=== PATIENT | female | born 1965 | race Caucasian/White ===

== ENCOUNTER 2019-10-14 06:46 | Day surgery (SDC) | payer BC ==
[~2019-10-14 06:46] MED LIST: Acetaminophen TAB* 325 MG PO PRN; Buffered Lidocaine 1% SYRIN* 1 ML/SYRINGE INTRADERM ONE
[2019-10-14] MEDS ORDERED: Midazolam* 1 MG/ML 2 ML VIAL (2 MG) ONE ×2 (08:40→09:00)
[2019-10-14] MEDS ORDERED: Phenylephrine OPHTH SOL 2.5%* 2 ML ONE ×2 (09:18→11:57)
[2019-10-14] MEDS ORDERED: Cyclopentolate 1% OPTH.SOL* 2 ML BTL ONE ×2 (09:18→11:57)
[2019-10-14] MEDS ORDERED: Proparacaine 0.5% OPHTH.SOL* 15 ML BTL ONE ×2 (09:18→11:58)
[2019-10-14] MEDS ORDERED: Lidocaine 2% w/ EPI 1:200,000* 20 ML SDV VIAL ONE ×2 (09:18→11:57)
[2019-10-14] MEDS ORDERED: Povidone Iodine 5% OPTH* 30 ML BTL ONE ×2 (09:18→11:57)
[2019-10-14] MEDS ORDERED: Ketorolac 0.5% OPHTH (NF) 0.5 % 5 ML BTL ONE ×2 (09:18→11:57)
[2019-10-14] MEDS ORDERED: Neomycin/Polymy/Dex OPTH.SUSP* MAXITROL 0.1% 5 ML ONE ×2 (09:18→11:57)
[2019-10-14] MEDS ORDERED: Lidocaine 1% MPF ** 5 ML VIAL ONE ×2 (09:18→11:57)
[2019-10-14 09:55] VITALS: BP 110/71
--- NOTE | 2019-10-14 10:03 | OP ---
DATE OF OPERATION: 10/14/2019 - ENDOCEC DATE OF : 1965. SURGEON: Matias Cortez M.D. PREOPERATIVE DIAGNOSIS: Cataract right eye. POSTOPERATIVE DIAGNOSIS: Cataract right eye. OPERATIVE PROCEDURE: Extracapsular cataract extraction with intraocular lens implant right eye. DESCRIPTION OF PROCEDURE: The patient was brought to the operating room after being given 1/2% Alcaine with epinephrine drops in the preoperative area. The eye was prepped and draped in the usual sterile fashion. Sterile drape and eyelid speculum were placed. Again, topical 1/2% Alcaine with epinephrine was given. A paracentesis incision was made at the 9 o'clock position with the No.75 blade. Clear cornea incision 2.2 x 2.2-mm was created at the 12 o'clock position starting at the anterior limbus using the 2.2-mm keratome. The anterior chamber was irrigated with 0.4 mL of 1% non-preservative intracameral lidocaine and filled with DisCoVisc. A capsulorrhexis was completed using the cystotome and the Utrata forceps. Hydrodissection was performed with balanced salt solution. The lens nucleus was removed with the Phacoemulsification handpiece without incident. Cortex was removed with the irrigation-aspiration handpiece. The capsular bag was re-inflated using DisCoVisc and an TFNT40 19 implant was inserted with the shooter, oriented to the 180 degree meridian. Horizontal reference casillas were made with the patient seated in the preoperative area. All measurements were confirmed with ORA. The irrigation- aspiration handpiece was used to remove all residual DisCoVisc. The eye was refilled with balanced salt solution and the wound checked and found to be watertight. Topical Maxitrol drops were given. [id number]/[facility] #: [id number] MTDD
[2019-10-14] MEDS ORDERED: acetaZOLAMIDE TAB* 250 MG ONE (11:57)
== END 2019-10-14 09:47 | disposition home or self-care (01) ==
LOC: OREAST 06:46
PROVIDERS: ATTEND Specialist
DX: H25.811 Combined forms of age-related cataract, right eye (principal); E11.42 Type 2 diabetes mellitus with diabetic polyneuropathy; I10 Essential (primary) hypertension; E55.9 Vitamin D deficiency, unspecified; K57.90 Diverticulosis of intestine, part unspecified, without perforation or abscess without bleeding; F10.10 Alcohol abuse, uncomplicated; Z88.1 Allergy status to other antibiotic agents; Z88.2 Allergy status to sulfonamides; Z88.8 Allergy status to other drugs, medicaments and biological substances; Z79.4 Long term (current) use of insulin
CPT/HCPCS: A9270-GY; J2250; V2788

== ENCOUNTER 2019-10-21 08:22 | Day surgery (SDC) | payer BC ==
[2019-10-21] MEDS ORDERED: Cyclopentolate 1% OPTH.SOL* 2 ML BTL ONE (09:22)
[2019-10-21] MEDS ORDERED: Phenylephrine OPHTH SOL 2.5%* 2 ML ONE (09:22)
[2019-10-21] MEDS ORDERED: Neomycin/Polymy/Dex OPTH.SUSP* MAXITROL 0.1% 5 ML ONE (09:22)
[2019-10-21] MEDS ORDERED: Proparacaine 0.5% OPHTH.SOL* 15 ML BTL ONE (09:22)
[2019-10-21] MEDS ORDERED: Lidocaine 2% w/ EPI 1:200,000* 20 ML SDV VIAL ONE (09:22)
[2019-10-21] MEDS ORDERED: Povidone Iodine 5% OPTH* 30 ML BTL ONE (09:22)
[2019-10-21] MEDS ORDERED: Ketorolac 0.5% OPHTH (NF) 0.5 % 5 ML BTL ONE (09:22)
[2019-10-21] MEDS ORDERED: Lidocaine 1% MPF ** 5 ML VIAL ONE (09:22)
[2019-10-21] MEDS ORDERED: Midazolam* 1 MG/ML 2 ML VIAL (2 MG) ONE ×2 (10:09→10:37)
[2019-10-21 11:22] VITALS: BP 120/67
--- NOTE | 2019-10-21 11:38 | OP ---
DATE OF OPERATION: 10/21/2019. DATE OF : 1965. SURGEON: Matias Cortez M.D. PREOPERATIVE DIAGNOSIS: Cataract left eye. POSTOPERATIVE DIAGNOSIS: Cataract left eye. OPERATIVE PROCEDURE: Extracapsular cataract extraction with intraocular lens implant left eye. PROCEDURE: The patient was brought to the operating room after being given 1/2% Alcaine with epineph rine drops in the preoperative area. The eye was prepped and draped in the usual sterile fashion. S terile drape and eyelid speculum were placed. Again, topical 1/2% Alcaine with epinephrine was given . A paracentesis incision was made at the 3 o'clock position with the No.75 blade. Clear cornea inc ision 2.2 x 2.2-mm was created at the 6 o'clock position starting at the anterior limbus using the 2. 2-mm keratome. The anterior chamber was irrigated with 0.4 mL of 1% non-preservative intracameral li docaine and filled with DisCoVisc. A capsulorrhexis was completed using the cystotome and the Utrata forceps. Hydrodissection was performed with balanced salt solution. The lens nucleus was removed wi th the Phacoemulsification handpiece without incident. Cortex was removed with the irrigation-aspira tion handpiece. The capsular bag was re-inflated using DisCoVisc and an TFNT30 18.5 implant was inse rted with the shooter, oriented to the 13 degree meridian. Horizontal reference csaillas were made with the patient seated in the preoperative area. All measurements were confirmed with ORA. The irrigat ion-aspiration handpiece was used to remove all residual DisCoVisc. The eye was refilled with balanc ed salt solution and the wound checked and found to be watertight. Topical Maxitrol drops were given . [id number]/[facility] #: [id number]
== END 2019-10-21 11:11 | disposition home or self-care (01) ==
LOC: OREAST 08:22
PROVIDERS: ATTEND Specialist
DX: H25.812 Combined forms of age-related cataract, left eye (principal); E11.43 Type 2 diabetes mellitus with diabetic autonomic (poly)neuropathy; Z79.84 Long term (current) use of oral hypoglycemic drugs; Z88.1 Allergy status to other antibiotic agents; I10 Essential (primary) hypertension; G25.81 Restless legs syndrome; G62.9 Polyneuropathy, unspecified; K31.84 Gastroparesis
CPT/HCPCS: A9270-GY; J2250; V2788

== ENCOUNTER 2020-09-28 10:55 | Inpatient (IN) ==
[2020-09-28] MEDS ORDERED: NS 0.9% 1000 ml BAG 1,000 ML IV ONE (11:48)
[2020-09-28 12:45] LABS: INR 1.23 (0.82-1.09)
[2020-09-28 12:57] LABS: Albumin 3.5 g/dL (3.2-5.2); Albumin/Globulin Ratio 0.8 (1-3); BUN/Creatinine Ratio 5.2 (8-20); Calcium 8.5 mg/dL (8.6-10.3); EGFR African American 8.1 (>60); EGFR Non-African American 6.7 (>60); Globulin 4.6 g/dL (2-4); Magnesium 1.3 mg/dL (1.9-2.7); Potassium 4.4 mmol/L (3.5-5.0); Total Bilirubin 1.4 mg/dL (0.2-1.0); Total Protein 8.1 g/dL (6.4-8.9); Troponin I 0.01 ng/mL (<0.03)
[2020-09-28 13:00] LABS: ABS Lymphocytes 0.8 10^3/ul (1.0-4.8); ABS Monocytes 1.1 10^3/ul (0-0.8); ABS Neutrophils 15.1 10^3/ul (1.5-7.7); Eosinophil % 0.3 %; Hematocrit 33 % (35-47); Lymphocyte % 4.7 %; Mean Corpuscular HGB Conc 36 g/dL (31-36); Mean Corpuscular Hemoglobin 47 pg (27-31); Mean Corpuscular Volume 129 fL (80-97); Mean Platelet Volume 8.3 fL (7.4-10.4); Platelet Count 217 10^3/uL (150-450); Red Blood Count 2.57 10^6 /uL (3.70-4.87); Red Cell Distribution Width 13 % (10-15)
[2020-09-28] MEDS ORDERED: Magnesium Sulfate 2 gm BAG 2 GM/50 ML BAG IVPB ONE (13:02)
[2020-09-28] MEDS ORDERED: Lidocaine PATCH 5% PATCH TRANSDERM ONE (13:38)
[2020-09-28] MEDS ORDERED: Ondansetron 4 mg VIAL 2 MG/ML 2 ml VIAL IV ONE (14:09)
[2020-09-28 15:51] LABS: Urine Appearance Cloudy; Urine Bilirubin Negative (Negative); Urine Blood 2+ (Negative); Urine Color Yellow; Urine Glucose 2+(150 mg/dL) (Negative); Urine Ketones Negative (Negative); Urine Nitrite Negative (Negative); Urine Protein Negative (Negative); Urine Specific Gravity 1.003 (1.010-1.030); Urine Urobilinogen Negative (Negative)
[2020-09-28 16:03] LABS: Urine Bacteria 1+ (Absent); Urine Red Blood Cell 3+(>10/hpf) (Absent); Urine Squamous Epithelial Cell Present (Absent); Urine White Blood Cell 3+(>20/hpf) (Absent)
[2020-09-28 16:05] LABS: Urine Potassium Concentration 15.8 mmol/L
[2020-09-28 16:14] LABS: BUN/Creatinine Ratio 5.1 (8-20); Calcium 7.8 mg/dL (8.6-10.3); EGFR African American 7.4 (>60); EGFR Non-African American 6.1 (>60)
[2020-09-28] MEDS ORDERED: Dextrose 50% Syringe 50 ml 25 GM/50 ML SYRINGE IV PUSH PRN (18:16)
[2020-09-28] MEDS ORDERED: Thiamine 100 MG/ML 2 ml VIAL (200 mg) IM ONE (18:21)
[2020-09-28 18:42] LABS: TSH Ultra Thyroid Stim Horm 6.73 mcIU/mL (0.34-5.60)
[2020-09-28] MEDS ORDERED: LORazepam 2 mg VIAL 1 ml IV PUSH SCH (19:00)
[2020-09-28] MEDS: HYDROcodone/ACETAMIN 5/325 mg TAB PO PRN (19:06)
[2020-09-28] MEDS ORDERED: Thiamine 100 MG/ML 2 ml VIAL (200 mg) IV ONE (19:12)
[2020-09-28] MEDS: Insulin GLARGINE 100 un/ml 10 ml VIAL SUBCUT SCH (19:34)
[2020-09-28] MEDS: cefTRIAXone 1 gm/50 mL NS BAG 1 GM/50 ML BAG IVPB SCH (19:35)
[2020-09-28] MEDS ORDERED: Thiamine IV 100 MG in NS 0.9% 50 ML Q24H IV ONE (20:00)
[2020-09-28 20:35] LABS: BUN/Creatinine Ratio 5.3 (8-20); Calcium 7.6 mg/dL (8.6-10.3); EGFR African American 7.4 (>60); EGFR Non-African American 6.1 (>60); Potassium 4.4 mmol/L (3.5-5.0)
[2020-09-28 23:28] LABS: BUN/Creatinine Ratio 5.2 (8-20); EGFR African American 7.1 (>60); EGFR Non-African American 5.9 (>60); Potassium 4.1 mmol/L (3.5-5.0)
[2020-09-29] MEDS ORDERED: Lidocaine Patch REMOVE PATCH PATCH OFF SCH
[2020-09-29] MEDS: HYDROcodone/ACETAMIN 5/325 mg TAB PO PRN ×2 (00:56→10:50)
[2020-09-29 01:24] LABS: BUN/Creatinine Ratio 5.3 (8-20); Calcium 7.9 mg/dL (8.6-10.3); EGFR African American 6.9 (>60); EGFR Non-African American 5.7 (>60); Potassium 4.2 mmol/L (3.5-5.0)
[2020-09-29 04:22] LABS: ABS Basophils 0.1 10^3/ul (0-0.2); ABS Eosinophils 0.1 10^3/ul (0-0.6); ABS Monocytes 1.2 10^3/ul (0-0.8); ABS Neutrophils 13.9 10^3/ul (1.5-7.7); Eosinophil % 0.7 %; Hematocrit 28 % (35-47); Hemoglobin 9.9 g/dL (12.0-16.0); Lymphocyte % 6.1 %; Mean Corpuscular HGB Conc 35 g/dL (31-36); Mean Corpuscular Hemoglobin 46 pg (27-31); Mean Corpuscular Volume 131 fL (80-97); Mean Platelet Volume 8.1 fL (7.4-10.4); Platelet Count 191 10^3/uL (150-450); Red Blood Count 2.14 10^6 /uL (3.70-4.87); Red Cell Distribution Width 13 % (10-15); White Blood Count 16.3 10^3/uL (3.5-10.8)
[2020-09-29 04:33] LABS: BUN/Creatinine Ratio 5.2 (8-20); Calcium 7.9 mg/dL (8.6-10.3); EGFR African American 6.9 (>60); EGFR Non-African American 5.7 (>60); Potassium 4.1 mmol/L (3.5-5.0)
[2020-09-29 06:28] LABS: BUN/Creatinine Ratio 5.2 (8-20); Calcium 7.9 mg/dL (8.6-10.3); EGFR African American 6.8 (>60); EGFR Non-African American 5.6 (>60); Potassium 4.1 mmol/L (3.5-5.0)
[2020-09-29] MEDS: Multivitamins/Minerals TAB PO SCH (10:36)
[2020-09-29 10:37] LABS: BUN/Creatinine Ratio 5.1 (8-20); Calcium 8.1 mg/dL (8.6-10.3); EGFR African American 6.6 (>60); EGFR Non-African American 5.5 (>60); Potassium 4.1 mmol/L (3.5-5.0)
[2020-09-29 14:08] LABS: BUN/Creatinine Ratio 5.5 (8-20); EGFR African American 6.7 (>60); EGFR Non-African American 5.5 (>60); Potassium 4.8 mmol/L (3.5-5.0)
[2020-09-29 17:21] LABS: BUN/Creatinine Ratio 5.6 (8-20); Calcium 7.8 mg/dL (8.6-10.3); EGFR African American 6.7 (>60); EGFR Non-African American 5.5 (>60); Potassium 4.7 mmol/L (3.5-5.0)
[2020-09-29] MEDS: Insulin GLARGINE 100 un/ml 10 ml VIAL SUBCUT SCH (18:05)
[2020-09-29] MEDS: cefTRIAXone 1 gm/50 mL NS BAG 1 GM/50 ML BAG IVPB SCH (18:24)
[2020-09-29 18:42] LABS: T4, Total 11.85 mcg/dL (6.09-12.23)
[2020-09-29 18:46] LABS: Free T3 2.4 pg/mL (2.5-3.9)
[2020-09-29 21:21] LABS: BUN/Creatinine Ratio 5.6 (8-20); Calcium 7.3 mg/dL (8.6-10.3); EGFR African American 6.8 (>60); EGFR Non-African American 5.6 (>60); Potassium 4.4 mmol/L (3.5-5.0)
[2020-09-30 00:27] LABS: BUN/Creatinine Ratio 5.5 (8-20); Calcium 7.9 mg/dL (8.6-10.3); EGFR African American 6.4 (>60); EGFR Non-African American 5.3 (>60); Potassium 4.4 mmol/L (3.5-5.0)
[2020-09-30 03:23] LABS: BUN/Creatinine Ratio 5.6 (8-20); Calcium 7.6 mg/dL (8.6-10.3); EGFR African American 6.3 (>60); EGFR Non-African American 5.2 (>60); Potassium 4.4 mmol/L (3.5-5.0)
[2020-09-30 06:28] LABS: ABS Eosinophils 0.1 10^3/ul (0-0.6); ABS Lymphocytes 0.7 10^3/ul (1.0-4.8); ABS Monocytes 0.7 10^3/ul (0-0.8); ABS Neutrophils 9.6 10^3/ul (1.5-7.7); Eosinophil % 0.6 %; Hematocrit 30 % (35-47); Hemoglobin 10.5 g/dL (12.0-16.0); Lymphocyte % 6.3 %; Mean Corpuscular HGB Conc 35 g/dL (31-36); Mean Corpuscular Hemoglobin 46 pg (27-31); Mean Corpuscular Volume 133 fL (80-97); Platelet Count 200 10^3/uL (150-450); Red Blood Count 2.26 10^6 /uL (3.70-4.87); Red Cell Distribution Width 14 % (10-15); White Blood Count 11.2 10^3/uL (3.5-10.8)
[2020-09-30 06:45] LABS: BUN/Creatinine Ratio 5.5 (8-20); Calcium 7.8 mg/dL (8.6-10.3); EGFR African American 6.1 (>60); EGFR Non-African American 5.1 (>60); Potassium 4.2 mmol/L (3.5-5.0)
[2020-09-30] MEDS: Multivitamins/Minerals TAB PO SCH (08:25)
[2020-09-30 09:18] LABS: BUN/Creatinine Ratio 5.7 (8-20); Calcium 7.7 mg/dL (8.6-10.3); EGFR African American 6.3 (>60); EGFR Non-African American 5.2 (>60); Potassium 4.3 mmol/L (3.5-5.0)
[2020-09-30] MEDS ORDERED: Sodium Bicarbonate 8.4% IV 100 MEQ in D5W 1000 ML BAG IV ONE (11:00)
[2020-09-30 13:24] LABS: BUN/Creatinine Ratio 5.8 (8-20); Calcium 7.8 mg/dL (8.6-10.3); EGFR African American 6.1 (>60); EGFR Non-African American 5.1 (>60); Potassium 4.1 mmol/L (3.5-5.0)
[2020-09-30 13:57] LABS: Urine Kappa Total Light Chain 3.39 mg/dL (<0.9000); Urine Kappa/Lambda Light Chain 1.73
[2020-09-30 15:26] LABS: Complement C3 79 mg/dL (75 - 175)
[2020-09-30] MEDS: Bismuth Subsalicylate 30 ML/527 MG ML PO PRN (18:10)
[2020-09-30] MEDS: cefTRIAXone 1 gm/50 mL NS BAG 1 GM/50 ML BAG IVPB SCH (18:11)
[2020-09-30] MEDS: Insulin GLARGINE 100 un/ml 10 ml VIAL SUBCUT SCH (18:11)
[2020-09-30 19:12] LABS: BUN/Creatinine Ratio 5.8 (8-20); Calcium 7.9 mg/dL (8.6-10.3); EGFR African American 6.1 (>60); Potassium 4.4 mmol/L (3.5-5.0)
[2020-09-30 21:40] LABS: BUN/Creatinine Ratio 5.6 (8-20); Calcium 7.7 mg/dL (8.6-10.3); EGFR African American 5.8 (>60); EGFR Non-African American 4.8 (>60)
[2020-10-01 01:37] LABS: BUN/Creatinine Ratio 5.6 (8-20); Calcium 7.6 mg/dL (8.6-10.3); EGFR African American 5.8 (>60); EGFR Non-African American 4.8 (>60); Potassium 3.8 mmol/L (3.5-5.0)
[2020-10-01 07:57] LABS: ABS Basophils 0.1 10^3/ul (0-0.2); ABS Eosinophils 0.1 10^3/ul (0-0.6); ABS Lymphocytes 1.1 10^3/ul (1.0-4.8); ABS Monocytes 0.9 10^3/ul (0-0.8); ABS Neutrophils 11.1 10^3/ul (1.5-7.7); Eosinophil % 0.7 %; Hematocrit 26 % (35-47); Hemoglobin 9.1 g/dL (12.0-16.0); Lymphocyte % 8.3 %; Mean Corpuscular HGB Conc 35 g/dL (31-36); Mean Corpuscular Hemoglobin 46 pg (27-31); Mean Corpuscular Volume 131 fL (80-97); Mean Platelet Volume 7.8 fL (7.4-10.4); Platelet Count 209 10^3/uL (150-450); Red Blood Count 1.99 10^6 /uL (3.70-4.87); Red Cell Distribution Width 15 % (10-15); White Blood Count 13.2 10^3/uL (3.5-10.8)
[2020-10-01 08:02] LABS: Albumin 2.9 g/dL (3.2-5.2); Albumin/Globulin Ratio 0.8 (1-3); BUN/Creatinine Ratio 5.7 (8-20); Calcium 7.7 mg/dL (8.6-10.3); EGFR African American 5.7 (>60); EGFR Non-African American 4.7 (>60); Globulin 3.7 g/dL (2-4); Potassium 4.2 mmol/L (3.5-5.0); Total Bilirubin 0.5 mg/dL (0.2-1.0); Total Protein 6.6 g/dL (6.4-8.9)
[2020-10-01] MEDS: Multivitamins/Minerals TAB PO SCH (09:38)
[2020-10-01] MEDS ORDERED: Sodium Bicarb 8.4% Vial 50 ML 100 MEQ in D5W 1000 ml BAG 1,000 ML IV ONE (09:39)
[2020-10-01 12:14] LABS: Urine Appearance Cloudy; Urine Bilirubin Negative (Negative); Urine Blood 1+ (Negative); Urine Color Straw; Urine Glucose 1+(50 mg/dL) (Negative); Urine Ketones Negative (Negative); Urine Nitrite Negative (Negative); Urine Protein Negative (Negative); Urine Specific Gravity 1.005 (1.010-1.030); Urine Urobilinogen Negative (Negative)
[2020-10-01 12:26] LABS: Urine Bacteria Absent (Absent); Urine Red Blood Cell 2+(6-10/hpf) (Absent); Urine Squamous Epithelial Cell Present (Absent); Urine White Blood Cell 3+(>20/hpf) (Absent)
[2020-10-01 12:57] LABS: Urine Creatinine 38.67 mg/dL; Urine Creatinine Concentration 38.67 mg/dL; Urine Microalbumin/Creatinine 69.8 (<31); Urine Potassium Concentration 19.4 mmol/L
[2020-10-01] MEDS: Bismuth Subsalicylate 30 ML/527 MG ML PO PRN (16:12)
[2020-10-01 17:20] LABS: BUN/Creatinine Ratio 5.5 (8-20); Calcium 7.7 mg/dL (8.6-10.3); EGFR African American 5.6 (>60); EGFR Non-African American 4.6 (>60); Potassium 3.6 mmol/L (3.5-5.0)
[2020-10-01 17:49] LABS: Folate 8.59 ng/mL (>3.99)
[2020-10-01] MEDS ORDERED: Insulin GLARGINE 100 un/ml 10 ml VIAL SUBCUT SCH ×2 (18:00)
[2020-10-01] MEDS: cefTRIAXone 1 gm/50 mL NS BAG 1 GM/50 ML BAG IVPB SCH ×2 (20:28→20:32)
[2020-10-01] MEDS ORDERED: cefTRIAXone 1 gm/50 mL NS BAG 1 GM/50 ML BAG IVPB SCH (21:00)
[2020-10-01 23:56] LABS: BUN/Creatinine Ratio 5.5 (8-20); Calcium 7.8 mg/dL (8.6-10.3); EGFR African American 5.7 (>60); EGFR Non-African American 4.7 (>60)
[2020-10-02] MEDS ORDERED: Potassium Chlor 20 meq TAB.ER PO ONE (08:00)
[2020-10-02 08:55] LABS: INR 1.15 (0.82-1.09)
[2020-10-02 08:56] LABS: ABS Basophils 0.1 10^3/ul (0-0.2); ABS Eosinophils 0.2 10^3/ul (0-0.6); ABS Lymphocytes 1.6 10^3/ul (1.0-4.8); ABS Monocytes 0.9 10^3/ul (0-0.8); ABS Neutrophils 12.3 10^3/ul (1.5-7.7); Eosinophil % 1.2 %; Hematocrit 28 % (35-47); Hemoglobin 9.6 g/dL (12.0-16.0); Lymphocyte % 10.9 %; Mean Corpuscular HGB Conc 35 g/dL (31-36); Mean Corpuscular Hemoglobin 45 pg (27-31); Mean Corpuscular Volume 129 fL (80-97); Mean Platelet Volume 7.5 fL (7.4-10.4); Platelet Count 254 10^3/uL (150-450); Red Blood Count 2.13 10^6 /uL (3.70-4.87); Red Cell Distribution Width 15 % (10-15); White Blood Count 15.1 10^3/uL (3.5-10.8)
[2020-10-02 09:02] LABS: BUN/Creatinine Ratio 5.5 (8-20); Calcium 7.6 mg/dL (8.6-10.3); EGFR African American 5.9 (>60); EGFR Non-African American 4.8 (>60); Potassium 3.4 mmol/L (3.5-5.0)
[2020-10-02] MEDS: Multivitamins/Minerals TAB PO SCH (09:06)
[2020-10-02 10:01] LABS: C Reactive Protein 53.17 mg/L (<8.01)
[2020-10-02 10:55] VITALS: BP 122/70
[2020-10-02] MEDS ORDERED: Insulin GLARGINE 100 un/ml 10 ml VIAL SUBCUT SCH (18:00)
[2020-10-04 12:37] LABS: Sm (Smith) IgG Antibody 0.2 U
[2020-10-04 12:59] LABS: Albumin 2.4 g/dL (3.4-4.7); Albumin/Globulin Ratio 0.63; Gamma Globulin 2.1 g/dL (0.6-1.6); Total Protein(PEP) 6.2 g/dL (6.3 - 7.9)
[2020-10-04 13:18] LABS: Albumin 41 %; Albumin/Globulin Ratio 0.69 %; Gamma Globulin 26 %; Total Protein(PEP) Urine 19 mg/dL
[2020-10-04 16:14] LABS: Kappa Free Light Chain 20.6 mg/dL
== END 2020-10-02 15:20 | disposition home or self-care (01) | DRG 469 ==
LOC: ED 10:55 → ICU 16:37 → MEDTELE 09-30 13:37
PROVIDERS: ADMIT Surgery Surgical Critical Care; ATTEND Internal Medicine

== ENCOUNTER 2024-01-11 13:18 | Observation (INO) ==
[2024-01-11 15:36] LABS: ABS Monocytes 0.7 10^3/uL (0.0-0.9); ABS Neutrophils 8.3 10^3/uL (1.5-7.6); ABS Nucleated RBC 0.02 10^3/ul; Eosinophil % 0.2 %; Hematocrit 38.9 % (35-45); Hemoglobin 13.2 g/dL (11.5-14.3); Lymphocyte % 17.8 %; Mean Corpuscular Volume 106.1 fL (80-97); Mean Platelet Volume 8.3 fL (7.5-11.2); Nucleated Red Blood Cells % 0.1 %/100WBC (0.0-0.8); Platelet Count 133 10^3/uL (150-450); Red Blood Count 3.67 10^6/uL (3.63-4.92); Red Cell Distribution Width 19.2 % (12-17); White Blood Count 11.1 10^3/uL (3.8-11.8)
[2024-01-11] MEDS: NS 0.9% 1000 ml BAG 1,000 ML IV ONE (16:04)
[2024-01-11] MEDS: Clindamycin 600 MG/D5W BAG 600 MG/50 ML BAG IV ONE (16:04)
[2024-01-11 16:07] LABS: Albumin 3.5 g/dL (3.2-5.2); Albumin/Globulin Ratio 0.7 (1-3); C Reactive Protein 9.25 mg/L (<8.01); Calcium 8.9 mg/dL (8.6-10.3); Creatinine, Serum 0.75 mg/dL (0.51-0.95); Globulin 4.8 g/dL (2-4); Total Bilirubin 1.5 mg/dL (0.2-1.0); Total Protein 8.3 g/dL (6.4-8.9); eGFR CKD-EPI 92.8 (>60)
[2024-01-11] MEDS ORDERED: Dextrose 50% Syringe 50 ml 25 GM/50 ML SYRINGE IV PUSH PRN (18:19)
[2024-01-11] MEDS ORDERED: Insulin GLARGINE 100 un/ml 10 ml VIAL SUBCUT SCH (21:00)
[2024-01-11] MEDS: Enoxaparin 40 MG/0.4 ML SYR SUBCUT SCH (21:36)
[2024-01-11] MEDS: Insulin GLARGINE 100 un/ml 10 ml VIAL SUBCUT SCH (22:57)
[2024-01-11] MEDS: Clindamycin 600 MG/D5W BAG 600 MG/50 ML BAG IV SCH (22:58)
[2024-01-12] MEDS: Insulin GLARGINE 100 un/ml 10 ml VIAL SUBCUT SCH (00:59)
[2024-01-12 05:16] LABS: ABS Eosinophils 0.1 10^3/uL (0.0-0.5); ABS Monocytes 0.6 10^3/uL (0.0-0.9); ABS Neutrophils 4.6 10^3/uL (1.5-7.6); Eosinophil % 0.7 %; Hematocrit 33.7 % (35-45); Hemoglobin 11.5 g/dL (11.5-14.3); Lymphocyte % 27.9 %; Mean Corpuscular Hemoglobin 36.4 pg (27-33); Mean Corpuscular Hgb Conc 34.2 g/dL (31-36); Mean Corpuscular Volume 106.4 fL (80-97); Platelet Count 107 10^3/uL (150-450); Red Blood Count 3.17 10^6/uL (3.63-4.92); Red Cell Distribution Width 18.9 % (12-17); White Blood Count 7.3 10^3/uL (3.8-11.8)
[2024-01-12 05:47] LABS: C Reactive Protein 17.26 mg/L (<8.01); Calcium 7.9 mg/dL (8.6-10.3); Creatinine, Serum 0.74 mg/dL (0.51-0.95); Potassium 3.5 mmol/L (3.5-5.0); eGFR CKD-EPI 94.3 (>60)
[2024-01-12 08:46] LABS: Folate 14.18 ng/mL (5.90-24.80)
[2024-01-12 09:49] VITALS: BP 144/83
== END 2024-01-12 14:30 | disposition short-term general hospital (02) ==
LOC: ED 13:18 → EDHOLD 13:18 → SSU 20:40
PROVIDERS: ADMIT Hospitalist; ATTEND Hospitalist